=== PATIENT | female | born 2005 | race Caucasian/White ===

== ENCOUNTER 2023-02-08 19:16 | Inpatient (IN) | payer MEDICAID, OTHER ==
[2023-02-08] MEDS ORDERED: LORazepam 1 MG TAB PO STA (19:42)
--- NOTE | 2023-02-08 20:34 | ED ---
Psych HPI - General Chief Complaint: Psychiatric Symptoms Stated Complaint: MENTAL HEALTH Time Seen by Provider: 02/08/23 19:28 Source: patient, family Mode of arrival: ambulatory - History of Present Illness Initial Comments: Patient is a 17-year-old male presenting with chief complaint of suicidal ideation. Patient states that ever since he graduated high school he has had increased depression and anxiety. He states that it has been a struggle to regularly take his medications as well. Patient states that he has had plans to either jump in front of traffic or hanging himself, but has no timeframe to perform these actions. He states that he at times has intrusive thoughts of harming others but has no desire to act on them. He has no physical complaints at this time. - Related Data Home Medications Medication Instructions Recorded Confirmed Testosterone Cypionate 50 mg IM Q7D 02/08/23 02/08/23 [Depo-Testosterone] Allergies Allergy/AdvReac Type Severity Reaction Status Date / Time No Known Allergies Allergy Verified 02/08/23 19:45 Review of Systems ROS Statement: Those systems with pertinent positive or pertinent negative responses have been documented in the HPI. ROS Other: All systems not noted in ROS Statement are negative. Past Medical History Past Medical History: No Reported History History of Any Multi-Drug Resistant Organisms: None Reported Past Surgical History: No Surgical Hx Reported Past Psychological History: Anxiety, Depression Smoking Status: Current every day smoker Past Alcohol Use History: Occasional Past Drug Use History: Marijuana General Exam Limitations: no limitations General appearance: alert, in no apparent distress Head exam: Present: atraumatic, normocephalic, normal inspection Eye exam: Present: normal appearance, EOMI. Absent: scleral icterus, periorbital swelling Neck exam: Present: normal inspection, full ROM Respiratory exam: Present: normal lung sounds bilaterally. Absent: respiratory distress, wheezes, rales, rhonchi, stridor Cardiovascular Exam: Present: regular rate, normal rhythm, normal heart sounds. Absent: systolic murmur, diastolic murmur, rubs, gallop, clicks Neurological exam: Present: alert, oriented X3, CN II-XII intact Psychiatric exam: Present: anxious, suicidal ideation Skin exam: Present: warm, dry, intact, normal color. Absent: rash Course Vital Signs 02/08/23 19:24 Temperature 99.7 F H Pulse Rate 89 Respiratory 16 Rate Blood Pressure 160/74 O2 Sat by Pulse 97 Oximetry Medical Decision Making - Medical Decision Making Was pt. sent in by a medical professional or institution (, MARY, DISASSEMBLER, urgent care, hospital, or half-way...) When possible be specific @ -No Did you speak to anyone other than the patient for history (EMS, parent, family, police, friend...)? What history was obtained from this source @ -No Did you review nursing and triage notes (agree or disagree)? Why? @ -I reviewed and agree with nursing and triage notes Were old charts reviewed (outside hosp., previous admission, EMS record, old EKG, old radiological studies, urgent care reports/EKG's, half-way records)? Report findings @ -No old charts were reviewed Differential Diagnosis (chest pain, altered mental status, abdominal pain women, abdominal pain men, vaginal bleeding, weakness, fever, dyspnea, syncope, headache, dizziness, GI bleed, back pain, seizure, CVA, palpatations, mental health, musculoskeletal)? @ -Differential Mental Health Depression, anxiety, bipolar, psychosis, schizophrenia, borderline personality, situational depression, adjustment disorder, behavioral disorder, brain tumor, malingering, substance abuse, encephalopathy, medication reaction, dementia, hypothyroidism, degenerative neurologic disorder, lupus.... This is not meant to be all-inclusive list EKG interpreted by me (3pts min.). @ -As above X-rays interpreted by me (1pt min.). @ -None done CT interpreted by me (1pt min.). @ -None done U/S interpreted by me (1pt. min.). @ -None done What testing was considered but not performed or refused? (CT, X-rays, U/S, labs)? Why? @ -None What meds were considered but not given or refused? Why? @ -None Did you discuss the management of the patient with other professionals (professionals i.e. , MARY, DISASSEMBLER, lab, RT, psych nurse, social service agency director, java groovy developer, teacher, public records officer, oil field caser)? Give summary @ -No Was smoking cessation discussed for >3mins.? @ -No Was critical care preformed (if so, how long)? @ -No Were there social determinants of health that impacted care today? How? (Homelessness, low income, unemployed, alcoholism, drug addiction, transportation, low edu. Level, literacy, decrease access to med. care, longterm, rehab)? @ -No Was there de-escalation of care discussed even if they declined (Discuss DNR or withdrawal of care, Hospice)? DNR status @ -No What co-morbidities impacted this encounter? (DM, HTN, Smoking, COPD, CAD, Cancer, CVA, ARF, Chemo, Hep., AIDS, mental health diagnosis, sleep apnea, morbid obesity)? @ -Anxiety and depression Was patient admitted / discharged? Hospital course, mention meds given and route, prescriptions, significant lab abnormalities, going to OR and other pertinent info. @ -Patient is a 17-year-old male presenting with chief complaint of suicidal ideation. Patient states that he has thought about jumping in front of a car or hanging himself, but has no timeframe in which he plans to act. He has no physical complaints at this time. Physical examination is unremarkable. Patient was evaluated by EPS determined he met inpatient criteria. Admitted to mental health floor. I discussed this case with my attending Dr. Lawrence Undiagnosed new problem with uncertain prognosis? @ -No Drug Therapy requiring intensive monitoring for toxicity (Heparin, Nitro, Insulin, Cardizem)? @ -No Were any procedures done? @ -No Diagnosis/symptom? @ -Suicidal ideation Acute, or Chronic, or Acute on Chronic? @ -Acute Uncomplicated (without systemic symptoms) or Complicated (systemic symptoms)? @ -Complicated Side effects of treatment? @ -No Exacerbation, Progression, or Severe Exacerbation? @ -No Poses a threat to life or bodily function? How? (Chest pain, [place], CO, pneumonia, PE, COPD, DKA, ARF, appy, cholecystitis, CVA, Diverticulitis, Homicidal, Suicidal, threat to staff... and all critical care pts) @ -Yes - Lab Data Lab Results 02/08/23 Range/Units 22:29 Urine Opiates Screen Not Detected (NotDetected) Ur Oxycodone Screen Not Detected (NotDetected) Urine Methadone Screen Not Detected (NotDetected) Ur Propoxyphene Screen Not Detected (NotDetected) Ur Barbiturates Screen Not Detected (NotDetected) U Tricyclic Antidepress Not Detected (NotDetected) Ur Phencyclidine Scrn Not Detected (NotDetected) Ur Amphetamines Screen Not Detected (NotDetected) U Methamphetamines Scrn Not Detected (NotDetected) U Benzodiazepines Scrn Not Detected (NotDetected) Urine Cocaine Screen Not Detected (NotDetected) U Marijuana (THC) Screen Detected H (NotDetected) Disposition Clinical Impression: Suicidal ideation, Acute anxiety, Depression Disposition: ADMITTED IP TO [facility] Condition: Fair Referrals: None,Stated [Primary Care Provider] - 1-2 days Time of Disposition: 23:52
[2023-02-08] MEDS ORDERED: ACETAMINOPHEN TAB 500 MG TAB PO STA (22:38)
[2023-02-08 23:05] LABS: Amphetamine Screen,Urine Not Detected (NotDetected); Barbiturate Screen,Urine Not Detected (NotDetected); Benzodiazepines Screen,Urine Not Detected (NotDetected); Cocaine Screen,Urine Not Detected (NotDetected); Methadone Screen, Urine Not Detected (NotDetected); Opiate Screen,Urine Not Detected (NotDetected); Oxycodone Screen, Urine Not Detected (NotDetected); Phencyclidine Screen,Urine Not Detected (NotDetected); Tricyclic Antidepressant,Urine Not Detected (NotDetected); Urn Cannabinoid Scrn Detected (NotDetected)
[2023-02-09] MEDS ORDERED: MAGNESIUM HYDROXIDE 2,400 MG/10 ML CUP PO PRN (02:01)
[2023-02-09] MEDS ORDERED: MAG HYDROX/AL HYDROX/SIMETH 30 ML CUP PO PRN (02:01)
[2023-02-09] MEDS ORDERED: ACETAMINOPHEN TAB 325 MG TAB PO PRN (02:01)
[2023-02-09] MEDS ORDERED: QUEtiapine 50 MG TAB PO PRN (02:03)
[2023-02-09] MEDS ORDERED: hydrOXYzine pamoate 25 MG CAP PO PRN (02:03)
--- NOTE | 2023-02-09 07:32 | P.PN ---
Progress Note - Text Progress Note Date: 02/09/23 notified of new admission , patient is currently sleeping and could not be evaluated
[2023-02-09] MEDS ORDERED: TESTOSTERONE CYPIONATE 200 MG/ML 1ML VIAL IM SCH (09:00)
[2023-02-09] MEDS ORDERED: NICOTINE 14MG/24HR PATCH TRANSDERM SCH (09:00)
[2023-02-09] MEDS: LITHIUM CARBONATE 300 MG CAP PO SCH ×2 (13:47→20:28)
[2023-02-09] MEDS: DULoxetine HCL 30 MG CAPSULE.DR PO SCH (13:47)
[2023-02-09 13:49] LABS: Appearance,Urine Cloudy (Clear); Bilirubin,Urine Negative (Negative); Blood,Urine Small (Negative); Color,Urine Yellow; Glucose,Urine (UA) Negative (Negative); Ketones,Urine 2+ (Negative); Leukocyte Esterase,Urine Small (Negative); Mucus,Urine Many /hpf; Nitrite,Urine Negative (Negative); Protein,Urine Trace (Negative); RBC,Urine 2 /hpf (0-5); Specific Gravity,Urine 1.017 (1.001-1.035); Squamous Epithelial Cell,Urine 9 /hpf (0-4); Urobilinogen,Urine <2.0 mg/dL (<2.0); WBC,Urine 3 /hpf (0-5)
--- NOTE | 2023-02-09 13:56 | P.HP ---
Psychiatric H&P - . H&P Date: 02/09/23 History & Physical: Allergies Allergy/AdvReac Type Severity Reaction Status Date / Time No Known Allergies Allergy Verified 02/08/23 19:45 Vital Signs Temp 97.8 F 02/09/23 03:21 Pulse 76 02/09/23 03:21 Resp 18 02/09/23 03:21 BP 149/71 02/09/23 03:21 Pulse Ox 98 02/09/23 03:21 FiO2 Intake & Output 02/08/23 02/09/23 02/09/23 18:59 06:59 18:59 Weight 110.308 kg Laboratory Last Values Urine Opiates Screen Not Detected (NotDetected) 02/08/23 22:29 Ur Oxycodone Screen Not Detected (NotDetected) 02/08/23 22:29 Urine Methadone Screen Not Detected (NotDetected) 02/08/23 22:29 Ur Propoxyphene Screen Not Detected (NotDetected) 02/08/23 22:29 Ur Barbiturates Screen Not Detected (NotDetected) 02/08/23 22:29 U Tricyclic Antidepress Not Detected (NotDetected) 02/08/23 22:29 Ur Phencyclidine Scrn Not Detected (NotDetected) 02/08/23 22:29 Ur Amphetamines Screen Not Detected (NotDetected) 02/08/23 22:29 U Methamphetamines Scrn Not Detected (NotDetected) 02/08/23 22:29 U Benzodiazepines Scrn Not Detected (NotDetected) 02/08/23 22:29 Urine Cocaine Screen Not Detected (NotDetected) 02/08/23 22:29 U Marijuana (THC) Screen Detected (NotDetected) H 02/08/23 22:29 Influenza Type A (PCR) Not Detected (Not Detectd) 02/09/23 01:00 Influenza Type B (PCR) Not Detected (Not Detectd) 02/09/23 01:00 RSV (PCR) Not Detected (Not Detectd) 02/09/23 01:00 SARS-CoV-2 (PCR) Not Detected (Not Detectd) 02/09/23 01:00 02/09/23 12:31 IDENTIFYING DATA: Patient is a []17-year-old female trans male, currently single and is a student at the [employer]. HPI: Patient presented to the hospital yesterday on 02/08 complaining of suicidal thoughts. Patient was also endorsing depression and increased anxiety lately. According to your report patient had a plan to jump into traffic or hang herself. Patient's UDS is positive for THC. Patient had been admitted voluntarily the mental health unit. Patient is currently being followed up by the nurse practitioner at [facility]. Patient claims that she has been having chronic suicidal thoughts that have increased lately. She states that this been going on since young age. She states that lately her mood is "unstable" and finds herself mainly depressed irritable and angry. She states that she's been having increase in anxiety. Claims that she has had possible manic symptoms in the past for restricted vague about what they are. She claims that her recent triggers have been school and also schoolwork. She claims that she is not finding it difficult to care for herself as well. States that she is currently in foster care now and is worried about this. She states that she is attending the local college. She states that she has not been taking her medications regularly including her psychiatric meds and also her testosterone injections which are do weekly. States that she has collected pills in the past to overdose. She states that she has been on the testosterone injection for about 2 years now. States that she is still suicidal at this time however and has no intent or plan. Patient denies any homicidal ideations intent or plan. At this time patient denies any auditory or visual hallucinations. Patient denies any flight of ideas racing thoughts and increased in goal directed behavior. Patient admits to using marijuana frequently, claims that she does not smoke cigarettes or use any other recreational drugs. PAST PSYCHIATRIC HISTORY: Patient states that she has a history of depression and anxiety. She claims that she is being prescribed Intuniv and also Lexapro. [Patient denies any previous psychiatric hospitalizations.] She claims that she currently follows up with [facility] with the nurse practitioner. [Patient denies any history of suicide attempts in the past.] Past Medical History: No Reported History History of Any Multi-Drug Resistant Organisms: None Reported Past Surgical History: No Surgical Hx Reported Past Psychological History: Anxiety, Depression Smoking Status: Current every day smoker Past Alcohol Use History: Occasional Past Drug Use History: Marijuana ALLERGIES: as per EMR CHEMICAL DEPENDENCY HISTORY: as per HPI FAMILY PSYCHIATRIC/SUBSTANCE USE HISTORY: Claims that her mother has bipolar di sorder SOCIAL HISTORY: Patient was born and raised in [facility]. She claims that she was put into foster care at an early age. States that she was currently in school full-time. She is single. She claims that she has not been incarcerated in the past. MENTAL STATUS EXAM: General Appearance: Patient appears to be tall, mildly overweight, stated age is alert, [directable, and attempts to cooperate]. Patient appears to have fair hygiene and grooming. Poor eye contact Behavior: Patient is seated without any agitated behavior. Attempts to cooperate. Speech: Patient's speech is [fluent and nonpressured.] [place]. Mood/Affect: Patient reports their mood is [depressed and anxious], affect is congruent and constricted. Suicidality/Homicidality: Patient denies having any homicidal ideation intent or plan. Claims that she has suicidal thoughts, no intent or plan. Perceptions: Patient denies any visual hallucinations [and denies any auditory hallucinations] Though content/process: [There is no evidence of any delusional thought content and thought process is linear and goal-directed.] Focused on her symptoms. Memory and concentration: AOX3, grossly intact for the purposes of this session. Can spell "WORLD" backwards Judgment and insight: [poor] STRENGTHS/WEAKNESSES: strength is that patient is [resilient]. Weakness is that patient [has poor judgment and is impulsive] INTELLECT: [average] IMPRESSIONS: depressive disorder r/o bipolar depression gender dysphoria generalized anxiety disorder cannabis use disorder PLAN: -Patient is admitted under [voluntary] status to MHU for stabilization of psychiatric symptoms and safety. Patient has signed [adult voluntary form and] [medication consent] and is placed in patient's chart. -Medications : Will start patient on lithium 300 mg bid for mood stabilization/suicidal thoughts, cymbalta 30 mg daily for mood/anxiety, trazodone 50 mg qhs for sleep -Ativan [and Haldol] PRN for agitation/aggression [-Patient was counselled on substance abuse and desired to cut back on use] -Patient was informed of the risks, benefits and side effects of the medication and patient verbally consented to taking the medications. Patient signed med consent form and was placed in chart. -Internal Medicine consult to perform medical evaluation and physical. -NRT - not needed as patient does not smoke -SW on board for discharge planning. Encourage patient to participate in groups to work on coping skills. 02/09/23 13:49 02/09/23 13:55
[2023-02-09] MEDS ORDERED: traZODone HCL 50 MG TAB PO SCH (21:00)
--- NOTE | 2023-02-10 02:12 | P.CONS ---
History of Present Illness - Reason for Consult Consult date: 02/10/23 - History of Present Illness The patient is a 17-year-old transgender male (pronouns he/him) currently undergoing gender affirming hormonal treatment who presented to the emergency room with complaints of depression and suicidal ideation. The patient was admitted with mental health unit where he was seen and evaluated. Patient states that he has been undergoing hormonal treatment for the past 2 years. He reports a long standing history of depressive thoughts which have recently worsened. He reports using chest binder to hide his breasts over the past several years which has led to him having difficulty breathing with exertion. He denies shortness of breath at rest. Denies any additional complaints. Denied experiencing chest discomfort or, fever, chills, cough, nausea, vomiting, abdominal pain, diarrhea. Reports recreational marijuana and vaping use. Review of systems: Pertinent positives and negatives as discussed in HPI, a complete review of systems was performed and all other systems are negative. Physical examination: General: non toxic, no distress, appears at stated age, obese Derm: no unusual rashes/lesions, no unusual ecchymoses, warm, dry Head: atraumatic, normocephalic, symmetric Eyes: EOMI, no lid lag, anicteric sclera ENT: Nose and ears atraumatic, no thrush, no pharyngeal erythema Neck: trachea midline, supple Mouth: no lip lesion, mucus membranes moist Cardiovascular: S1S2 reg, no murmur, no edema Lungs: CTA bilateral, no rhonchi, no rales , no accessory muscle use Abdominal: soft, nontender to palpation, no guarding Ext: no gross muscle atrophy, no contractures, Neuro: No gross focal neuro deficits noted Psych: Alert, oriented, appropriate affect Assessment: Shortness of breath with exertion, suspect secondary to chest binder use Depression with suicidal ideation Marijuana abuse Imaging: None performed Data Review: UA unremarkable with urine toxicology positive for marijuana. Influenza, RSV, and COVID-19 testing negative Plan: Advised on importance of limiting chest binder use Advised on importance of cessation for marijuana use Defer management of depression and suicidal ideation to primary psychiatry service Thank you for allowing us to participate in the care of this patient. We will follow peripherally. Do not hesitate to contact us with questions. Someone can be reached from the [facility] [place] hospitalist group at all hours of the day at [phone]. Past Medical History Past Medical History: No Reported History Additional Past Medical History / Comment(s): Transgender female to male History of Any Multi-Drug Resistant Organisms: None Reported Past Surgical History: No Surgical Hx Reported Past Anesthesia/Blood Transfusion Reactions: No Reported Reaction Past Psychological History: Anxiety, Depression Smoking Status: Never smoker Past Alcohol Use History: Occasional Past Drug Use History: Marijuana - Past Family History Father History Unknown: Yes Mother History Unknown: Yes Medications and Allergies Home Medications Medication Instructions Recorded Confirmed Type Testosterone Cypionate 50 mg IM Q7D 02/08/23 02/08/23 History [Depo-Testosterone] Allergies Allergy/AdvReac Type Severity Reaction Status Date / Time No Known Allergies Allergy Verified 02/08/23 19:45 Physical Exam Vitals: Vital Signs Temp Pulse Resp BP Pulse Ox 02/09/23 03:21 97.8 F 76 18 149/71 98 Results Labs: Abnormal Lab Results - Last 24 Hours (Table) 02/08/23 Range/Units 22:29 Urine Appearance Cloudy H (Clear) Urine Protein Trace H (Negative) Urine Ketones 2+ H (Negative) Urine Blood Small H (Negative) Ur Leukocyte Esterase Small H (Negative) Ur Squamous Epith Cells 9 H (0-4) /hpf Urine Mucus Many H (None) /hpf
[2023-02-10] MEDS: DULoxetine HCL 30 MG CAPSULE.DR PO SCH ×2 (08:13→21:09)
[2023-02-10] MEDS: LITHIUM CARBONATE 300 MG CAP PO SCH ×2 (08:13→21:09)
[2023-02-10] MEDS ORDERED: ONDANSETRON 4 MG TAB PO PRN (11:36)
[2023-02-10 11:43] LABS: Basophils % (A) 0 %; Eosinophils # (A) 0.5 k/uL (0-0.7); Eosinophils % (A) 6 %; HGB 14.7 gm/dL (11.4-16.0); Lymphocytes # (A) 1.9 k/uL (1.0-4.8); Lymphocytes % (A) 23 %; MCH 29.1 pg (25.0-35.0); MCHC 34.2 g/dL (31.0-37.0); MCV 85.1 fL (80.0-100.0); Mean Platelet Volume 8.2; Monocytes # (A) 0.5 k/uL (0-1.0); Monocytes % (A) 6 %; Neutrophils # (A) 5.3 k/uL (1.3-7.7); Neutrophils % (A) 63 %; Platelet Count 257 k/uL (150-450); RBC 5.05 m/uL (3.80-5.40); RDW 12.7 % (11.5-15.5); WBC 8.4 k/uL (4.0-11.0)
[2023-02-10 11:55] LABS: ALT 51 U/L (4-34); AST 40 U/L (14-36); African American GFR (CKD) >90 (>60 ml/min/1.73 sqM); Albumin 4.8 g/dL (3.5-5.0); Alkaline Phosphatase 91 U/L (38-126); Anion Gap 12 mmol/L; Blood Urea Nitrogen 11 mg/dL (7-17); Calcium 9.9 mg/dL (8.4-10.2); Carbon Dioxide 23 mmol/L (22-30); Chloride 104 mmol/L (98-107); Glucose 105 mg/dL (74-99); Non-African American GFR(CKD) >90 (>60 ml/min/1.73 sqM); Potassium 4.1 mmol/L (3.5-5.1); Sodium 139 mmol/L (137-145); Total Bilirubin 0.8 mg/dL (0.2-1.3); Total Protein 8.2 g/dL (6.3-8.2)
--- NOTE | 2023-02-10 12:48 | P.PN ---
Progress Note - Text Progress Note Date: 02/10/23 Interval History: Patient was seen today in the hallways and agreeable to be seen by magnetic tape typewriter operator in the office. Patient was also participating in group earlier. Patient claims that overall he is "about the same" and continues to endorse depression and mood instability. He states that "nothing has changed since of been in here". He did claim that he is taking the medications and tolerating it fairly well. He did state that he did have some nausea earlier today. States that he's been eating meals and trying to go to groups. He states that he is finding it difficult to speak in group due to other people talking. States that if finding it difficult to sleep last night and requested to have his trazodone increased. He is agreeable to continue with medications. He states that he continues to have suicidal thoughts, no intent or plan. Denies any homicidal ideations. Denies any auditory visual hallucinations. Mental status exam: General Appearance: Patient appears to be tall, mildly overweight, stated age is alert, [directable, and attempts to cooperate]. Patient appears to have fair hygiene and grooming. Improving eye contact Behavior: Patient is seated without any agitated behavior. Attempts to cooperate. Speech: Patient's speech is [fluent and nonpressured.] [place]. Mood/Affect: Patient reports their mood is [depressed and anxious], affect is congruent and constricted. Suicidality/Homicidality: Patient denies having any homicidal ideation intent or plan. Claims that she has suicidal thoughts, no intent or plan. Perceptions: Patient denies any visual hallucinations [and denies any auditory hallucinations] Though content/process: [There is no evidence of any delusional thought content and thought process is linear and goal-directed.] Memory and concentration: AOX3, grossly intact for the purposes of this session Judgment and insight: [poor], improving mildly IMPRESSIONS: depressive disorder r/o bipolar depression gender dysphoria generalized anxiety disorder cannabis use disorder PLAN: -Patient is admitted under [voluntary] status to MHU for stabilization of psychiatric symptoms and safety. Patient has signed [adult voluntary form and] [medication consent] and is placed in patient's chart. -Medications : lithium 300 mg bid for mood stabilization/suicidal thoughts, increase cymbalta 60 mg daily for mood/anxiety, increase trazodone 100 mg qhs for sleep -Ativan [and Haldol] PRN for agitation/aggression -NRT - not needed as patient does not smoke -SW on board for discharge planning. Encourage patient to participate in groups to work on coping skills.
[2023-02-10 18:10] LABS: Chol/HDL Ratio 5.75 Ratio; LDL Cholesterol,Calculated 131.4 mg/dL (0.0-131.0)
[2023-02-10] MEDS: traZODone HCL 100 MG TAB PO SCH (21:09)
[2023-02-11] MEDS: DULoxetine HCL 30 MG CAPSULE.DR PO SCH (08:12)
[2023-02-11] MEDS: LITHIUM CARBONATE 300 MG CAP PO SCH ×2 (08:12→20:54)
--- NOTE | 2023-02-11 10:38 | P.PN ---
Progress Note - Text Progress Note Date: 02/11/23 Interval History: Patient was seen today in the [facility] after group and agreeable to be seen by ad copy writer in the office. Patient claims that he has been going to group regularly. States that they have been more helpful. He claims that he is doing a bit better today with regards to his overall mood and irritability. States that "I'm starting to feel a bit more like myself now". Claims that he misses his girlfriend and hopes that she will come and visit him tonight for visitation. He states that also he feels a bit anxious about missing out on school. Anxiety his mood is improving and also anxiety as well. States that he was able to sleep better last night about 5-6 hours. Once he remain on the same dose of trazodone. He spoke about possibly increasing the Cymbalta which she is okay with. Claims that he is no longer having nausea or any other side effects. States that he's been eating meals. He states that he is no longer having suicidal thoughts, no intent or plan. Denies any homicidal ideations. Denies any auditory visual hallucinations. Mental status exam: General Appearance: Patient appears to be tall, mildly overweight, stated age is alert, [directable, and attempts to cooperate]. Patient appears to have fair hygiene and grooming. Improving eye contact Behavior: Patient is seated without any agitated behavior. Attempts to cooperate. Speech: Patient's speech is [fluent and nonpressured.] Mood/Affect: Patient reports their mood is [improving mildly], affect is congruent and improving Suicidality/Homicidality: Patient denies having any homicidal ideation intent or plan. Claims that she has suicidal thoughts, no intent or plan. Perceptions: Patient denies any visual hallucinations [and denies any auditory hallucinations] Though content/process: [There is no evidence of any delusional thought content and thought process is linear and goal-directed.] Memory and concentration: AOX3, grossly intact for the purposes of this session Judgment and insight: improving mildly IMPRESSIONS: depressive disorder r/o bipolar depression gender dysphoria generalized anxiety disorder cannabis use disorder PLAN: -Patient is admitted under [voluntary] status to MHU for stabilization of psychiatric symptoms and safety. Patient has signed [adult voluntary form and] [medication consent] and is placed in patient's chart. -Medications : lithium 300 mg bid for mood stabilization/suicidal thoughts, increase cymbalta 60 mg qhs + 30 my daily for mood/anxiety, trazodone 100 mg qhs for sleep -Ativan [and Haldol] PRN for agitation/aggression -check lithium level tomorrow morning -NRT - not needed as patient does not smoke -SW on board for discharge planning. Encourage patient to participate in groups to work on coping skills. possible discharge tomorrow vs thursday back home.
[2023-02-11] MEDS: traZODone HCL 100 MG TAB PO SCH (20:54)
[2023-02-11] MEDS ORDERED: DULoxetine HCL 60 MG CAPSULE.DR PO SCH (21:00)
[2023-02-12 06:55] VITALS: BP 143/64; PULSE 84; RESP 18; TEMP 96.9
[2023-02-12] MEDS: LITHIUM CARBONATE 300 MG CAP PO SCH (08:37)
[2023-02-12] MEDS ORDERED: DULoxetine HCL 30 MG CAPSULE.DR PO SCH (09:00)
--- NOTE | 2023-02-12 10:04 | P.DS ---
Providers Date of admission: 02/09/23 01:56 Expected date of discharge: 02/12/23 Attending physician: Akshat Orona MD Consults: 02/09/23 02:01 Consult Physician Routine Consulting Provider: Lew Nguyen Consult Reason/Comments: medical h&p Do you want consulting provider notified?: Yes Primary care physician: Stated None - Discharge Diagnosis(es) (1) Depressive disorder Current Visit: Yes Status: Acute Priority: High (2) Gender dysphoria Current Visit: Yes Status: Acute Priority: Medium (3) Generalized anxiety disorder Current Visit: Yes Status: Acute Priority: High (4) Cannabis use disorder Current Visit: Yes Status: Acute Priority: Medium Hospital Course: Admission HPI: Admission note was completed by director underwriter sales "Patient is a 17-year-old female trans male, currently single and is a student at the [employer]. Patient presented to the hospital yesterday on 02/08 complaining of suicidal thoughts. Patient was also endorsing depression and increased anxiety lately. According to your report patient had a plan to jump into traffic or hang herself. Patient's UDS is positive for THC. Patient had been admitted voluntarily the mental health unit. Patient is currently being followed up by the nurse practitioner at [facility]. Patient claims that she has been having chronic suicidal thoughts that have increased lately. She states that this been going on since young age. She states that lately her mood is "unstable" and finds herself mainly depressed irritable and angry. She states that she's been having increase in anxiety. Claims that she has had possible manic symptoms in the past for restricted vague about what they are. She claims that her recent triggers have been school and also schoolwork. She claims that she is not finding it difficult to care for herself as well. States that she is currently in foster care now and is worried about this. She states that she is attending the local college. She states that she has not been taking her medications regularly including her psychiatric meds and also her testosterone injections which are do weekly. States that she has collected pills in the past to overdose. She states that she has been on the testosterone injection for about 2 years now. States that she is still suicidal at this time however and has no intent or plan. Patient denies any homicidal ideations intent or plan. At this time patient denies any auditory or visual hallucinations. Patient denies any flight of ideas racing thoughts and increased in goal directed behavior. Patient admits to using marijuana frequently, claims that she does not smoke cigarettes or use any other recreational drugs." Hospital course: Upon admission to the unit patient was directable and agreeable to commence treatment and signed adult voluntary form . Patient got along well with other patients on the unit and followed unit protocol. Patient was compliant with the medications and denied any side effects throughout hospital course. Patient was started on lithium 300 mg twice a day for mood stabilization/suicidal thoughts, Cymbalta 60 mg daily at bedtime +30 mg daily for mood/anxiety, trazodone 150 mg daily at bedtime for sleep/mood. Patient spoke of his stressors and engaged in therapy both group and individual. Patient was also seen by medical team for history and physical exam. lithium level drawn on 02/12 was 0.4. Throughout the course of the hospitalization patient gradually improved with regards to mood, anxiety, suicidal thoughts, sleep and became more future oriented with improved insight and judgment. On the day of discharge patient denied any suicidal or homicidal ideations intent or plan denied any auditory or visual hallucinations. Patient endorsed wanting to live for his girlfriend, life and to be a foster p arent in the future. The patient denied any access to guns or weapons. Patient denied any paranoia and did not endorse any delusions. Patient does have a significant history of substance abuse and was counseled on abstaining from all substances including alcohol and marijuana. Patient elected to do outpatient substance use treatment program through [facility]. Patient was also counseled on the medications and need for regular compliance and was encouraged to follow-up with their outpatient appointment for mental health and also for primary care. Prior to discharge a family meeting will be arranged by public health social worker to answer any questions and ensure safety upon discharge. Mental status exam: General Appearance: Patient appears to be tall, mildly overweight, stated age is alert, pleasant, and cooperative. Patient is in no acute distress and has improved hygiene and grooming Behavior: Patient is calmly seated without any agitated behavior. Speech: Patient's speech is fluent and nonpressured. Mood/Affect: Patient reports their mood is "good", affect is congruent Suicidality/Homicidality: Patient denies having any suicidal or homicidal ideation intent or plan. Perceptions: Patient denies any auditory or visual hallucinations. Though content/process: There is no evidence of any delusional thought content and thought process is linear and goal-directed. more future oriented Memory and concentration: AOX3, grossly intact for the purposes of this session. Can spell "WORLD" backwards correctly. Judgment and insight: improved with guarded prognosis Impression: Depressive disorder unspecified, rule out bipolar depression Cannabis use disorder Generalized anxiety disorder Gender dysphoria Plan: -Continue with discharge today as patient has improved and stabilized psychiatrically and is not currently an imminent threat to himself and/or others. -Continue medications: Stewart 300 mg twice a day for mood stabilization/suicidal thoughts, Cymbalta 60 mg daily at bedtime +30 mg daily for mood/anxiety, trazodone 150 mg daily at bedtime for sleep/mood. -Patient was counseled on the need for medication compliance and appropriate follow-up at mental health and also primary care for medical issues. Patient verbalized understanding and agreed. -Social work to arrange for and conduct family meeting to ensure safety upon discharge and answer any questions/concerns. Social work also to arrange for patients follow up appointments with [facility] for psychiatric care along with follow up with primary care provider. -Patient counseled on abstaining from recreational drugs and marijuana and alcohol. Was informed/educated on the adverse effects on their physical and mental health. Patient verbally agreed and understood. -Patient was instructed to return to the hospital or seek immediate medical care if their psychiatric or medical symptoms do worsen or reoccur. Allergies Allergy/AdvReac Type Severity Reaction Status Date / Time No Known Allergies Allergy Verified 02/08/23 19:45 Laboratory Results WBC 8.4 k/uL (4.0-11.0) 02/10/23 10:19 RBC 5.05 m/uL (3.80-5.40) 02/10/23 10:19 Hgb 14.7 gm/dL (11.4-16.0) 02/10/23 10:19 Hct 43.0 % (34.0-46.0) 02/10/23 10:19 MCV 85.1 fL (80.0-100.0) 02/10/23 10:19 MCH 29.1 pg (25.0-35.0) 02/10/23 10:19 MCHC 34.2 g/dL (31.0-37.0) 02/10/23 10:19 RDW 12.7 % (11.5-15.5) 02/10/23 10:19 Plt Count 257 k/uL (150-450) 02/10/23 10:19 MPV 8.2 02/10/23 10:19 Neutrophils % 63 % 02/10/23 10:19 Lymphocytes % 23 % 02/10/23 10:19 Monocytes % 6 % 02/10/23 10:19 Eosinophils % 6 % 02/10/23 10:19 Basophils % 0 % 02/10/23 10:19 Neutrophils # 5.3 k/uL (1.3-7.7) 02/10/23 10:19 Lymphocytes # 1.9 k/uL (1.0-4.8) 02/10/23 10:19 Monocytes # 0.5 k/uL (0-1.0) 02/10/23 10:19 Eosinophils # 0.5 k/uL (0-0.7) 02/10/23 10:19 Basophils # 0.0 k/uL (0-0.2) 02/10/23 10:19 Sodium 139 mmol/L (137-145) 02/10/23 10:19 Potassium 4.1 mmol/L (3.5-5.1) 02/10/23 10:19 Chloride 104 mmol/L (98-107) 02/10/23 10:19 Carbon Dioxide 23 mmol/L (22-30) 02/10/23 10:19 Anion Gap 12 mmol/L 02/10/23 10:19 BUN 11 mg/dL (7-17) 02/10/23 10:19 Creatinine 0.87 mg/dL (0.52-1.04) 02/10/23 10:19 Est GFR (CKD-EPI)AfAm >90 (>60 ml/min/1.73 sqM) 02/10/23 10:19 Est GFR (CKD-EPI)NonAf >90 (>60 ml/min/1.73 sqM) 02/10/23 10:19 Glucose 105 mg/dL (74-99) H 02/10/23 10:[address] Glu mg/dL 125 02/10/23 10:19 Hemoglobin A1c 6.0 % (0.0-6.0) 02/10/23 10:19 Calcium 9.9 mg/dL (8.4-10.2) 02/10/23 10:19 Total Bilirubin 0.8 mg/dL (0.2-1.3) 02/10/23 10:19 AST 40 U/L (14-36) H 02/10/23 10:19 ALT 51 U/L (4-34) H 02/10/23 10:19 Alkaline Phosphatase 91 U/L (38-126) 02/10/23 10:19 Total Protein 8.2 g/dL (6.3-8.2) 02/10/23 10:19 Albumin 4.8 g/dL (3.5-5.0) 02/10/23 10:19 Triglycerides 169.00 mg/dL (0.00-149.00) H 02/10/23 10:19 Cholesterol 200.00 mg/dL (0.00-200.00) 02/10/23 10:19 LDL Cholesterol, Calc 131.4 mg/dL (0.0-131.0) H 02/10/23 10:19 VLDL Cholesterol, Calc 33.80 mg/dL (5.00-40.00) 02/10/23 10:19 HDL Cholesterol 34.80 mg/dL (40.00-60.00) L 02/10/23 10:19 Cholesterol/HDL Ratio 5.75 Ratio 02/10/23 10:19 TSH 2.400 mIU/L (0.465-4.680) 02/10/23 10:19 Urine Color Yellow 02/08/23 22: Urine Appearance Cloudy (Clear) H 02/08/23 22: Urine pH 6.0 (5.0-8.0) 02/08/23 22: Ur Specific [place] 1.017 (1.001-1.035) 02/08/23 22: Urine Protein Trace (Negative) H 02/08/23 22: Urine Glucose (UA) Negative (Negative) 02/08/23 22: Urine Ketones 2+ (Negative) H 02/08/23 22: Urine Blood Small (Negative) H 02/08/23 22: Urine Nitrite Negative (Negative) 02/08/23 22: Urine Bilirubin Negative (Negative) 02/08/23 22: Urine Urobilinogen <2.0 mg/dL (<2.0) 02/08/23 22:29 Ur Leukocyte Esterase Small (Negative) H 02/08/23 22:29 Urine RBC 2 /hpf (0-5) 02/08/23 22:29 Urine WBC 3 /hpf (0-5) 02/08/23 22:29 Ur Squamous Epith Cells 9 /hpf (0-4) H 02/08/23 22:29 Urine Mucus Many /hpf (None) H 02/08/23 22:29 Urine Opiates Screen Not Detected (NotDetected) 02/08/23 22:29 Ur Oxycodone Screen Not Detected (NotDetected) 02/08/23 22:29 Urine Methadone Screen Not Detected (NotDetected) 02/08/23 22:29 Ur Propoxyphene Screen Not Detected (NotDetected) 02/08/23 22:29 Ur Barbiturates Screen Not Detected (NotDetected) 02/08/23 22:29 U Tricyclic Antidepress Not Detected (NotDetected) 02/08/23 22:29 Ur Phencyclidine Scrn Not Detected (NotDetected) 02/08/23 22:29 Ur Amphetamines Screen Not Detected (NotDetected) 02/08/23 22:29 U Methamphetamines Scrn Not Detected (NotDetected) 02/08/23 22:29 U Benzodiazepines Scrn Not Detected (NotDetected) 02/08/23 22:29 Stewart 0.4 mmol/L 02/12/23 07:57 Urine Cocaine Screen Not Detected (NotDetected) 02/08/23 22:29 U Marijuana (THC) Screen Detected (NotDetected) H 02/08/23 22:29 Influenza Type A (PCR) Not Detected (Not Detectd) 02/09/23 01:00 Influenza Type B (PCR) Not Detected (Not Detectd) 02/09/23 01:00 RSV (PCR) Not Detected (Not Detectd) 02/09/23 01:00 SARS-CoV-2 (PCR) Not Detected (Not Detectd) 02/09/23 01:00 Vital Signs Temp 96.9 F L 02/12/23 06:55 Pulse 84 02/12/23 06:55 Resp 18 02/12/23 06:55 BP 143/64 02/12/23 06:55 Pulse Ox 97 02/12/23 06:55 FiO2 Patient Condition at Discharge: Stable Plan - Discharge Summary New Discharge Prescriptions: New DULoxetine HCL [Cymbalta] 30 mg PO DAILY 30 Days #30 cap DULoxetine HCL [Cymbalta] 60 mg PO HS 30 Days #30 cap Stewart Carbonate 300 mg PO BID 30 Days #30 cap traZODone HCL 150 mg PO HS 30 Days #30 tablet hydrOXYzine pamoate [Vistaril] 50 mg PO BID PRN 30 Days #120 cap PRN Reason: Anxiety Continue Testosterone Cypionate [Depo-Testosterone] 50 mg IM Q7D Discharge Medication List Testosterone Cypionate [Depo-Testosterone] 50 mg IM Q7D 02/08/23 [History] DULoxetine HCL [Cymbalta] 30 mg PO DAILY 30 Days #30 cap 02/12/23 [Rx] DULoxetine HCL [Cymbalta] 60 mg PO HS 30 Days #30 cap 02/12/23 [Rx] Stewart Carbonate 300 mg PO BID 30 Days #30 cap 02/12/23 [Rx] hydrOXYzine pamoate [Vistaril] 50 mg PO BID PRN 30 Days #120 cap 02/12/23 [Rx] traZODone HCL 150 mg PO HS 30 Days #30 tablet 02/12/23 [Rx] Follow up Appointment(s)/Referral(s): [facility] [Outside] - 02/18/23 10:00 am (02/18/2023 10:00AM - 11:00AM with JAIR MONTEZ 02/23/2023 10:00AM - 11:00AM with RUDY JESUS) None,Stated [Primary Care Provider] - 1-2 days Activity/Diet/Wound Care/Special Instructions: Avoid the use of street drugs and alcohol. Take all medications as prescribed. When you are in need of refills on your medications, please contact your medical provider and/or outpatient psychiatrist to have this done. Please go to scheduled outpatient appointments for aftercare treatment. If symptoms return or become worse, call the crisis line at and/or go to the nearest emergency room for evaluation. Discharge Disposition: HOME SELF-CARE
== END 2023-02-12 12:43 | disposition home or self-care (01) | DRG 754 ==
LOC: EC 19:16 → EDSEX 02-09 01:56 → 3MHU 02-09 01:56
PROVIDERS: ADMIT Psychiatry & Neurology Psychiatry; ATTEND Psychiatry & Neurology Psychiatry
DX: F32.A Depression, unspecified (principal); R45.851 Suicidal ideations; F17.210 Nicotine dependence, cigarettes, uncomplicated; F41.1 Generalized anxiety disorder; F12.10 Cannabis abuse, uncomplicated; Z20.822 Contact with and (suspected) exposure to COVID-19; F64.0 Transsexualism; Z91.148 Patient's other noncompliance with medication regimen for other reason; Z71.51 Drug abuse counseling and surveillance of drug abuser; Z71.6 Tobacco abuse counseling
CPT/HCPCS: 80053; 80061; 80178; 80306; 81001; 82075; 83036; 84443; 85025; 87636

== ENCOUNTER 2023-03-09 16:43 | Emergency (ER) | payer OTHER ==
[2023-03-09] MEDS ORDERED: SODIUM CHLORIDE 0.9% 1,000 ML IV STA (18:04)
--- NOTE | 2023-03-09 18:25 | ED ---
General Adult HPI - General Chief complaint: Psychiatric Symptoms Stated complaint: mental health Time Seen by Provider: 03/09/23 17:55 Source: patient, family, RN notes reviewed, old records reviewed Mode of arrival: ambulatory Limitations: no limitations - History of Present Illness Initial comments: Patient is a 17-year-old transgender female to male patient with past medical history remarkable for anxiety, depression, suicidal ideations presents e mergency Department complaining of possible accidental overdose of Vistaril as well as increased anxiety. Patient states a new job was started today, and decided to take 4 tablets of Vistaril in addition to the prescribed dosage of twice a day when necessary Vistaril. Patient is supposed to take 25 mg to 50 mg twice a day. He states he took 25 mg this morning and then an additional 100 mg at 3 PM. States approximately 15 minutes after taking the additional 100 mg, he became so anxious that he took too many that he threw up and saw all 4 additional tablets of Vistaril in the emesis. Patient to call his therapist with connected him to see them, we spoke with his foster mother and we decided to do is do diligence to make sure that he is doing well. He is very confident he saw before tablets and S2.. Currently denies any acute complaints at this time. States his anxiety is better at this time. Denies any other acute complaints at this time. Denies chest pain, shortness breath, abdominal pain, nausea, vomiting. Denies any suicidal ideations, attempts complaints. Denies any homicidal ideations, attempts complaints. Denies any visual or auditory hallucinations. - Related Data Home Medications Medication Instructions Recorded Confirmed Testosterone Cypionate 50 mg IM Q7D 02/08/23 03/09/23 [Depo-Testosterone] Previous Rx's Medication Instructions Recorded DULoxetine HCL [Cymbalta] 30 mg PO DAILY 30 Days #30 cap 02/12/23 DULoxetine HCL [Cymbalta] 60 mg PO HS 30 Days #30 cap 02/12/23 [place] Carbonate 300 mg PO BID 30 Days #30 cap 02/12/23 hydrOXYzine pamoate [Vistaril] 50 mg PO BID PRN 30 Days #120 cap 02/12/23 traZODone HCL 150 mg PO HS 30 Days #30 tablet 02/12/23 Allergies Allergy/AdvReac Type Severity Reaction Status Date / Time No Known Allergies Allergy Verified 03/09/23 17:59 Review of Systems ROS Statement: Those systems with pertinent positive or pertinent negative responses have been documented in the HPI. Review of Systems: CONST: Denies fever EYES: Denies blurry vision ENT: Denies nasal congestion C/V: Denies Chest pain RESP: Denies shortness of breath GI: Denies abdominal pain : Denies dysuria SKIN: Denies rash. MSK: Denies joint pain. NEURO: Denies headache PSYCH: Denies suicidal and homicidal ideations/plans/attempts. Denies visual or auditory hallucinations. ROS Other: All systems not noted in ROS Statement are negative. Past Medical History Past Medical History: No Reported History Additional Past Medical History / Comment(s): Transgender female to male History of Any Multi-Drug Resistant Organisms: None Reported Past Surgical History: No Surgical Hx Reported Past Anesthesia/Blood Transfusion Reactions: No Reported Reaction Past Psychological History: Anxiety, Depression Smoking Status: Never smoker Past Alcohol Use History: Occasional Past Drug Use History: Marijuana - Past Family History Father History Unknown: Yes Mother History Unknown: Yes General Exam - General Exam Comments Initial Comments: General: Appears in no acute distress. HEAD: Normal with no signs of head trauma. EYES: PERRLA, EOMI, conjunctiva normal, no discharge. Pupils 3 mm equal bilaterally. ENT: Hearing grossly intact, normal oropharynx. RESPIRATORY: Clear breath sounds bilaterally. No wheezes, rales, or rhonchi. C/V: Regular rate and rhythm. S1 and S2 auscultated, no edema, peripheral pulses 2+ and intact throughout ABD: Abd is soft, nontender, nondistended EXT: Normal range of motion, no obvious deformity SKIN: No rashes or lesions observed on exposed skin. NEURO: Alert and oriented 4. Limitations: no limitations Course Vital Signs 03/09/23 03/09/23 16:44 23:07 Temperature 98.5 F 97.9 F Pulse Rate 67 68 Respiratory 16 18 Rate Blood Pressure 137/87 136/95 O2 Sat by Pulse 99 98 Oximetry Medical Decision Making - Medical Decision Making Was pt. sent in by a medical professional or institution (, PA, [employer], urgent care, hospital, or fci...) When possible be specific @ -No Did you speak to anyone other than the patient for history (EMS, parent, family, police, friend...)? What history was obtained from this source @ -No Did you review nursing and triage notes (agree or disagree)? Why? @ -I reviewed and agree with nursing and triage notes Were old charts reviewed (outside hosp., previous admission, EMS record, old EKG, old radiological studies, urgent care reports/EKG's, fci records)? Report findings @ -No old charts were reviewed Differential Diagnosis (chest pain, altered mental status, abdominal pain women, abdominal pain men, vaginal bleeding, weakness, fever, dyspnea, syncope, headache, dizziness, GI bleed, back pain, seizure, CVA, palpatations, mental health, musculoskeletal)? @ -Differential Mental Health Depression, anxiety, bipolar, psychosis, schizophrenia, borderline personality, situational depression, adjustment disorder, behavioral disorder, brain tumor, malingering, substance abuse, encephalopathy, medication reaction, dementia, hypothyroidism, degenerative neurologic disorder, lupus.... This is not meant to be all-inclusive list EKG interpreted by me (3pts min.). @ -As above X-rays interpreted by me (1pt min.). @ -None done CT interpreted by me (1pt min.). @ -None done U/S interpreted by me (1pt. min.). @ -None done What testing was considered but not performed or refused? (CT, X-rays, U/S, labs)? Why? @ -None What meds were considered but not given or refused? Why? @ -None Did you discuss the management of the patient with other professionals (professionals i.e. , PA, [employer], lab, RT, psych nurse, hospital social worker, milk inspector, teacher, risk control officer, employment case manager)? Give summary @ -No Was smoking cessation discussed for >3mins.? @ -No Was critical care preformed (if so, how long)? @ -No Were there social determinants of health that impacted care today? How? (Homelessness, low income, unemployed, alcoholism, drug addiction, transportation, low edu. Level, literacy, decrease access to med. care, skilled nursing, rehab)? @ -No Was there de-escalation of care discussed even if they declined (Discuss DNR or withdrawal of care, Hospice)? DNR status @ -No What co-morbidities impacted this encounter? (DM, HTN, Smoking, COPD, CAD, Cancer, CVA, ARF, Chemo, Hep., AIDS, mental health diagnosis, sleep apnea, morbid obesity)? @ -None Was patient admitted / discharged? Hospital course, mention meds given and route, prescriptions, significant lab abnormalities, going to OR and other pertinent info. @ -Based on the patient's presentation and physical exam, he presents over concern for taking 4 extra tablets of Vistaril which he states he believes is secondary to increased anxiety but he did experiencing episode of emesis during all 4F shortly after he administer them. I headache suicidal or homicidal ideations. Patient was placed in green scrubs. Patient does have a history of suicidal ideations. I did discuss with him that due to his history, as well as his recent mental health situation today I did recommend that he PSE evaluate him. The off chance that he did take extra medications, as he did throw and af ter I asked that he did take 1 tablet of Tylenol we will obtain overdose labs just to be safe. He is currently asymptomatic with the antihistamine medication, that he subsequently did throw up. I low suspicion that he actually ingested any medication but we will obtain the labs anyways. Patient was in agreement this plan. Vital signs within acceptable limits. Screening EKG will also be obtained. This patient is asymptomatic, and the patient did not actually ingest any notable additional tablets at this time and is asymptomatic I do not believe that poison control is warranted as a consult at this time. This may change of his labs show something different or patient becomes symptomatic. However as the patient did throw up all of his additional medication of Vistaril that he took at 3 PM I have low suspicion he will develop symptoms.I did discuss with the patient also that the amount he took, 100 mg is within normal dosing regimens for his age. Patient's labspatient updated. EKG unremarkable. Remains asymptomatic. UDS positive for marijuana. On reevaluation, patient is asymptomatic. Patient is medically cleared for evaluation by psychiatry. Disposition is pending psychiatric evaluation. EPS was notified and is aware. Patient evaluated by EPS and determined that the patient does not meet inpatient criteria. Will be discharged home with a safety plan. Patient was in agreement this plan. Discharged home in good condition. Undiagnosed new problem with uncertain prognosis? @ -No Drug Therapy requiring intensive monitoring for toxicity (Heparin, Nitro, Insulin, Cardizem)? @ -No Were any procedures done? @ -No Diagnosis/symptom? @ -Anxiety Acute, or Chronic, or Acute on Chronic? @ -Acute Uncomplicated (without systemic symptoms) or Complicated (systemic symptoms)? @ -Complicated Side effects of treatment? @ -No Exacerbation, Progression, or Severe Exacerbation? @ -No Poses a threat to life or bodily function? How? (Chest pain, [place], NH, pneumonia, PE, COPD, DKA, ARF, appy, cholecystitis, CVA, Diverticulitis, Homicidal, Suicidal, threat to staff... and all critical care pts) @ -No - Lab Data Result diagrams: 03/09/23 18:24 03/09/23 18:24 Lab Results 03/09/23 03/09/23 03/09/23 Range/Units 18:24 18:24 18:40 WBC 10.3 (4.0-11.0) k/uL RBC 4.86 (4.30-5.90) m/uL Hgb 14.5 (13.0-17.5) gm/dL Hct 42.3 (39.0-53.0) % MCV 87.1 (80.0-100.0) fL MCH 29.7 (25.0-35.0) pg MCHC 34.1 (31.0-37.0) g/dL RDW 12.9 (11.5-15.5) % Plt Count 328 (150-450) k/uL MPV 7.6 Neutrophils % 73 % Lymphocytes % 19 % Monocytes % 4 % Eosinophils % 2 % Basophils % 0 % Neutrophils # 7.5 (1.3-7.7) k/uL Lymphocytes # 2.0 (1.0-4.8) k/uL Monocytes # 0.4 (0-1.0) k/uL Eosinophils # 0.2 (0-0.7) k/uL Basophils # 0.1 (0-0.2) k/uL Sodium 140 (137-145) mmol/L Potassium 3.7 (3.5-5.1) mmol/L Chloride 105 (98-107) mmol/L Carbon Dioxide 22 (22-30) mmol/L Anion Gap 13 mmol/L BUN 15 (9-20) mg/dL Creatinine 0.82 (0.66-1.25) mg/dL Est GFR (CKD-EPI)AfAm 148 (>60 ml/min/1.73 sqM) Est GFR (CKD-EPI)NonAf 128 (>60 ml/min/1.73 sqM) Glucose 129 H (74-99) mg/dL Calcium 9.3 (8.4-10.2) mg/dL Total Bilirubin 0.5 (0.2-1.3) mg/dL AST 33 (17-59) U/L ALT 44 (4-49) U/L Alkaline Phosphatase 110 (38-126) U/L Total Protein 7.8 (6.3-8.2) g/dL Albumin 4.6 (3.5-5.0) g/dL Urine Color Yellow Urine Appearance Clear (Clear) Urine pH 6.5 (5.0-8.0) Ur Specific [place] 1.035 (1.001-1.035) Urine Protein 1+ H (Negative) Urine Glucose (UA) Negative (Negative) Urine Ketones Negative (Negative) Urine Blood Trace H (Negative) Urine Nitrite Negative (Negative) Urine Bilirubin Negative (Negative) Urine Urobilinogen <2.0 (<2.0) mg/dL Ur Leukocyte Esterase Trace H (Negative) Urine RBC 7 H (0-5) /hpf Urine WBC 4 (0-5) /hpf Ur Squamous Epith Cells 2 (0-4) /hpf Urine Mucus Many (None) /hpf Salicylates <1.0 mg/dL Urine Opiates Screen Not Detected (NotDetected) Ur Oxycodone Screen Not Detected (NotDetected) Urine Methadone Screen Not Detected (NotDetected) Ur Propoxyphene Screen Not Detected (NotDetected) Acetaminophen <10.0 ug/mL Ur Barbiturates Screen Not Detected (NotDetected) U Tricyclic Antidepress Not Detected (NotDetected) Ur Phencyclidine Scrn Not Detected (NotDetected) Ur Amphetamines Screen Not Detected (NotDetected) U Methamphetamines Scrn Not Detected (NotDetected) U Benzodiazepines Scrn Not Detected (NotDetected) Urine Cocaine Screen Not Detected (NotDetected) U Marijuana (THC) Screen Detected H (NotDetected) Serum Alcohol <10 mg/dL - EKG Data -: EKG Interpreted by Me EKG Comments: 12-lead Electrocardiogram Interpretation Note EKG was reviewed and interpreted by myself. 12-lead ECG performed at 1852 is interpreted by me as revealing normal sinus rhythm at a rate of 64 beats per minute. [place] is normal. NM interval is 165 ms, QRS duration is 108 ms, QTc is 402 ms.. The penis to be an incomplete right bundle branch block. There were no ST or T wave abnormalities to suggest myocardial ischemia or injury. R wave progression across the precordium was satisfactory. By my interpretation this EKG is non-diagnostic for acute ischemia. Disposition Clinical Impression: Anxiety Disposition: HOME SELF-CARE Condition: Good Additional Instructions: follow safety plan Is patient prescribed a controlled substance at d/c from ED?: No Referrals: Kristen Craven MD [REFERRING] - 1-2 days Time of Disposition: 23:11
[2023-03-09 18:31] LABS: Basophils # (A) 0.1 k/uL (0-0.2); Basophils % (A) 0 %; Eosinophils # (A) 0.2 k/uL (0-0.7); Eosinophils % (A) 2 %; HCT 42.3 % (39.0-53.0); HGB 14.5 gm/dL (13.0-17.5); Lymphocytes % (A) 19 %; MCH 29.7 pg (25.0-35.0); MCHC 34.1 g/dL (31.0-37.0); MCV 87.1 fL (80.0-100.0); Mean Platelet Volume 7.6; Monocytes # (A) 0.4 k/uL (0-1.0); Monocytes % (A) 4 %; Neutrophils # (A) 7.5 k/uL (1.3-7.7); Neutrophils % (A) 73 %; Platelet Count 328 k/uL (150-450); RBC 4.86 m/uL (4.30-5.90); RDW 12.9 % (11.5-15.5); WBC 10.3 k/uL (4.0-11.0)
[2023-03-09 18:39] LABS: ALT 44 U/L (4-49); AST 33 U/L (17-59); Acetaminophen <10.0 ug/mL; African American GFR (CKD) 148 (>60 ml/min/1.73 sqM); Albumin 4.6 g/dL (3.5-5.0); Alcohol <10 mg/dL; Alkaline Phosphatase 110 U/L (38-126); Anion Gap 13 mmol/L; Blood Urea Nitrogen 15 mg/dL (9-20); Calcium 9.3 mg/dL (8.4-10.2); Carbon Dioxide 22 mmol/L (22-30); Chloride 105 mmol/L (98-107); Glucose 129 mg/dL (74-99); Non-African American GFR(CKD) 128 (>60 ml/min/1.73 sqM); Potassium 3.7 mmol/L (3.5-5.1); Salicylate <1.0 mg/dL; Sodium 140 mmol/L (137-145); Total Bilirubin 0.5 mg/dL (0.2-1.3); Total Protein 7.8 g/dL (6.3-8.2)
[2023-03-09 18:55] LABS: Appearance,Urine Clear (Clear); Bilirubin,Urine Negative (Negative); Blood,Urine Trace (Negative); Color,Urine Yellow; Glucose,Urine (UA) Negative (Negative); Ketones,Urine Negative (Negative); Leukocyte Esterase,Urine Trace (Negative); Mucus,Urine Many /hpf; Nitrite,Urine Negative (Negative); PH, Urine 6.5 (5.0-8.0); Protein,Urine 1+ (Negative); RBC,Urine 7 /hpf (0-5); Specific Gravity,Urine 1.035 (1.001-1.035); Squamous Epithelial Cell,Urine 2 /hpf (0-4); Urobilinogen,Urine <2.0 mg/dL (<2.0); WBC,Urine 4 /hpf (0-5)
[2023-03-09 18:59] LABS: Amphetamine Screen,Urine Not Detected (NotDetected); Barbiturate Screen,Urine Not Detected (NotDetected); Benzodiazepines Screen,Urine Not Detected (NotDetected); Cocaine Screen,Urine Not Detected (NotDetected); Methadone Screen, Urine Not Detected (NotDetected); Opiate Screen,Urine Not Detected (NotDetected); Oxycodone Screen, Urine Not Detected (NotDetected); Phencyclidine Screen,Urine Not Detected (NotDetected); Tricyclic Antidepressant,Urine Not Detected (NotDetected); Urn Cannabinoid Scrn Detected (NotDetected)
[2023-03-09 23:08] VITALS: BP 136/95; PULSE 68; RESP 18; TEMP 97.9
== END 2023-03-09 23:57 | disposition home or self-care (01) ==
LOC: EDSEX → EC 16:43 → EDSEX 16:43 → SUPCPDRO 16:43 → EC 03-10 00:03
DX: F41.9 Anxiety disorder, unspecified (principal); Z86.59 Personal history of other mental and behavioral disorders
CPT/HCPCS: 82075; 36415; 93005; 80053; 85025; 81001; 80306; 80143; 80179; 99285; 96360; 96361; G0480; 80320